=== PATIENT | female | born 1950 | race Caucasian/White ===

== ENCOUNTER 2019-11-10 17:44 | Observation (INO) ==
[2019-11-10 18:06] LABS: ABG Base Excess 1.2 MMOL/L (-2.5-2.5); ABG HCO3 25.4 MMOL/L (20-26); ABG Oxygen Saturation 95.3 % (95-100); ABG PCO2 35.2 MM HG (35-48); ABG PH 7.454 (7.35-7.45); ABG PO2 69.6 MM HG (80-95); ABG TCO2 21.5 MMOL/L (23-27)
[2019-11-10 18:28] LABS: Basophils % 0.4 % (0.0-0.8); Eosinophils % 0.5 % (0.00-10.9); Hematocrit 37.6 VOL% (35.7-47.0); Hemoglobin 12.8 GM/DL (12.0-16.0); Immature Granulocytes % 0.4 %; Immature Granulocytes Absolute 0.03 #; Lymphocytes # 1.2 10*3/uL (1.4-4.0); Lymphocytes % 14.1 % (21.3-54.2); Mean Corpuscular Volume 81.7 FL (87-102); Mean Platelet Volume 8.6 FL (9.6-12.0); Monocytes % 7.5 % (1.7-12.7); Neutrophils % 77.1 % (38.7-73.9); Platelet Count 232 T/CUMM (130-400); Red Cell Distribution Width 12.8 % (9.3-17.3); White Blood Count 8.3 T/CUMM (4-12)
[2019-11-10 18:50] LABS: Albumin 3.3 G/DL (3.4-5.0); Bilirubin,Total 0.7 MG/DL (0.2-1.0); Calcium 8.7 MG/DL (8.5-10.1); Total Protein 6.4 G/DL (6.4-8.3)
[2019-11-10 18:55] LABS: Bilirubin,Urine Negative (Negative); Blood, Urine Negative (Negative); Glucose,Urine (UA) >=500 mg/dL (Negative); Ketones,Urine 80 mg/dL (Negative); Mucus,Urine Moderate /LPF (Occasional); Nitrite,Urine Negative (Negative); Protein,Urine 30 MG/DL; RBC,Urine 11 /HPF (0-4); Squamous Epithelial Cell,Urine Occasional /HPF (0-10); Urine Appearance CLOUDY (Clear); Urine Color Yellow (Yellow); Urine Specific Gravity 1.022 (1.001-1.035); Urine Urobilinogen < 2.0 EU/DL (0.2-1.0); WBC,Urine 159 /HPF (0-6)
[2019-11-10] MEDS ORDERED: cefTRIAXone 1,000 MG in SODIUM CHLORIDE 0.9% 100 ML IV STA (19:06)
[2019-11-10] MEDS ORDERED: SODIUM CHLORIDE 0.9% 1,000 ML IV STA (19:06)
[2019-11-10] MEDS ORDERED: ACETAMINOPHEN 325 MG TABLET PO PRN (19:40)
[2019-11-10] MEDS ORDERED: ONDANSETRON 4 MG/2 ML VIAL IV PRN (19:40)
[2019-11-10] MEDS ORDERED: DEXTROSE 50% 25 GM/50 ML VIAL IV PRN (19:40)
[2019-11-10] MEDS ORDERED: GLUCAGON 1 MG VIAL IM PRN (19:40)
[2019-11-10] MEDS: SODIUM CHLORIDE 0.9% 1,000 ML IV SCH (22:25)
[2019-11-11] MEDS: SODIUM CHLORIDE 0.9% 1,000 ML IV SCH ×2 (04:48→14:38)
[2019-11-11 06:26] LABS: Basophils % 0.3 % (0.0-0.8); Eosinophils # 0.1 10*3/uL (0.0-0.87); Eosinophils % 1.8 % (0.00-10.9); Hematocrit 34.8 VOL% (35.7-47.0); Hemoglobin 11.9 GM/DL (12.0-16.0); Immature Granulocytes % 0.3 %; Immature Granulocytes Absolute 0.02 #; Lymphocytes # 1.5 10*3/uL (1.4-4.0); Lymphocytes % 21.6 % (21.3-54.2); Mean Corpuscular HGB Conc 34.2 GM/DL (32-36); Mean Corpuscular Volume 82.3 FL (87-102); Mean Platelet Volume 9.5 FL (9.6-12.0); Monocytes % 8.2 % (1.7-12.7); Neutrophils % 67.8 % (38.7-73.9); Platelet Count 217 T/CUMM (130-400); Red Blood Count 4.23 MC/CUMM (3.8-5.5); White Blood Count 7.1 T/CUMM (4-12)
[2019-11-11] MEDS ORDERED: POTASSIUM CHLORIDE 20 MEQ TABLET PO ONE (09:09)
[2019-11-11 11:53] VITALS: BP 135/68
[2019-11-11] MEDS ORDERED: cefTRIAXone 1,000 MG in SYRINGE 1 EACH IV SCH (21:00)
== END 2019-11-11 13:41 | disposition home or self-care (01) ==
LOC: EDBD → EDUNIT# → N.EDINP 17:44 → N.ED 17:44 → N.5E 21:50
PROVIDERS: ADMIT Internal Medicine Geriatric Medicine; ATTEND Internal Medicine Geriatric Medicine